=== PATIENT | female | born 1990 | race Caucasian/White ===

== ENCOUNTER → 2023-04-04 09:14 | Outpatient (REF) | payer OTHER, SELFPAY | LOC: REG 09:14 | PROVIDERS: ATTENDING PHYSICIAN Family Medicine | DX: M79.2 Neuralgia and neuritis, unspecified (principal); M54.6 Pain in thoracic spine | CPT/HCPCS: 72072 ==

== ENCOUNTER → 2023-07-26 15:51 | Outpatient (REF) | payer OTHER, SELFPAY | LOC: RAD 15:51 | PROVIDERS: ATTENDING PHYSICIAN Nurse Practitioner Adult Health | DX: Z33.1 Pregnant state, incidental (principal); R10.2 Pelvic and perineal pain | CPT/HCPCS: 76801; 76817 ==

== ENCOUNTER 2023-09-10 12:14 | Emergency (ER) | payer OTHER, SELFPAY ==
[2023-09-10 12:16] VITALS: BP 114/70; BMI 20.8
[2023-09-10 14:00] VITALS: BMI 21.7
[2023-09-10 14:01] VITALS: BP 103/70
[2023-09-10 14:23] LABS: % Basophils 0.4 % (0-2); % Eosinophils 1.7 % (0-6); % Immature Granulocytes 0.3 % (0-0.5); % Lymphocytes 16.1 % (20.5-51.1); % Monocytes 6.2 % (1.7-9.3); % Neutrophils 75.3 % (42.2-75.2); Absolute Eosinophils 0.2 10^3/uL (0-0.7); Absolute Lymphocytes 1.5 10^3/uL (1.2-3.4); Absolute Monocytes 0.6 10^3/uL (0.1-0.6); Hematocrit 34.9 % (37.0-47.0); Hemoglobin 12.5 g/dL (12.0-16.0); Mean Corp Hgb Conc. 35.8 g/dL (33.0-37.0); Mean Corpuscular Hgb 31.9 pg (27.0-31.0); Mean Platelet Volume 10.7 fL (7.4-10.4); Nucleated Red Blood Cells % 0 %; Platelet Count 181 10^3/uL (130-400); Red Blood Cell Count 3.92 10^6/uL (4.20-5.40); Red Cell Dist. Width 12.8 % (11.5-14.5); White Blood Cell Count 9.3 10^3/uL (4.8-10.8)
[2023-09-10 14:36] LABS: ALT (SGPT) 13 U/L (0-35); AST (SGOT) 20 U/L (14-36); Albumin 3.7 g/dl (3.5-5.0); Alkaline Phosphatase 44 U/L (38-126); Blood Urea Nitrogen 12 mg/dl (7-17); Calcium 9.1 mg/dl (8.4-10.2); Carbon Dioxide 23 mmol/L (22-30); Chloride 104 mmol/L (98-107); Estimated Creatinine Clearance 114 ml/min; Glucose 81 mg/dl (70-99); Potassium 4.1 mmol/L (3.5-5.1); Sodium 133 mmol/L (135-145); Total Bilirubin 0.3 mg/dl (0.2-1.3); Total Protein 5.9 g/dl (6.3-8.2); eGFR > 60.00
--- NOTE | 2023-09-10 15:47 | ED.GENMED ---
History of Present Illness
General
Chief Complaint: Abdominal Pain
Source: patient
Time Seen by Provider: 09/10/23 14:05
History of Present Illness
History of Present Illness:
32-year-old female with no significant past medical history, , estimated to be about 12 weeks presenting to the emergency department after she noticed some light vaginal spotting yesterday evening which continued into today. Patient
states she is very concerned about this as she has gone through infertility treatments and after 5 years is finally . She is following with her [employer] through [place]. She does note very light lower abdominal cramping but
otherwise no other symptoms at this time including fevers, chills, rigors, urinary frequency/urgency/dysuria or hematuria. She has no other concerns at this time.
Past History
Past History
ED Past Medical History: None
ED Past Surgical History: None
Social History
Tobacco: Non-smoker
Alcohol: None
Drug: None
Personal:
Living: with family
Employment: Employed
Review of Systems
Review of Systems
All Other Systems: ROS reviewed and negative except as documented in HPI and ROS
Phy Exam
Physical Exam
Physical Exam:
GENERAL: Alert , in no apparent distress
EYE: clear conjunctiva b/l
HEAD: NCAT
ENT: o/p clr, mmm.
ABDOMEN: Soft, without focal tenderness, no r/g, no cvat
NEUROLOGICAL: Alert and oriented
SKIN: Warm and dry, skin intact.
MUSCULOSKELETAL: No edema, well perfused.
PSYCH: Normal and appropriate interaction.
Scores
Heart Failure Risk
Heart Failure Risk Score: Not Applicable
Heart Score for Chest Pain Patients
STEMI patient?: Not applicable
Withdrawal Assessment of Alcohol
Withdrawal Assessment Completed?: Not applicable
Course
Orders/Labs/Results
Orders:
Orders
09/10/23 14:05
US W Transvaginal Urgent
Reason For Exam: spotting x 2 days, worsening pain
09/10/23 14:17
Type+Screen Urgent
BBK Wristband Number:
Beta HCG Quantitative Urgent
Is this a screen?: No
Complete Blood Count/With Diff Urgent
Comprehensive Metabolic Panel Urgent
Abnormal Lab Results
09/10/23
14:17
RBC 3.92 L 10^6/uL
(4.20-5.40)
Hct 34.9 L %
(37.0-47.0)
MCH 31.9 H pg
(27.0-31.0)
MPV 10.7 H fL
(7.4-10.4)
Absolute Neuts (auto) 7.0 H 10^3/uL
(1.4-6.5)
Neutrophils % 75.3 H %
(42.2-75.2)
Lymphocytes % 16.1 L %
(20.5-51.1)
Sodium 133 L mmol/L
(135-145)
Creatinine 0.4 L mg/dL
(0.6-1.0)
Total Protein 5.9 L g/dl
(6.3-8.2)
09/10/23 14:17
09/10/23 14:17
Vital Signs
Initial and Last Documented VS:
Initial Vital Signs
Temp Pulse Resp BP Pulse Ox
98 F 99 16 114/70 98
09/10/23 12:16 09/10/23 12:16 09/10/23 12:16 09/10/23 12:16 09/10/23 12:16
Last Documented Vital Signs
Temp Pulse Resp BP Pulse Ox
98.8 F 74 16 93/56 100
09/10/23 14:01 09/10/23 15:59 09/10/23 15:59 09/10/23 15:59 09/10/23 15:59
MDM/Problems Addressed
Differential Diagnosis Includes:
Threatened miscarriage, incomplete , failure
MDM/Problems Addressed:
32-year-old female presenting emergency department for light vaginal spotting that started last night, continued this morning. Patient estimated to be about 12 weeks . Given her history of infertility issues combined with her current
bleeding will obtain an ultrasound to further evaluate. Disposition pending with likely close outpatient follow-up with her [employer]
*Radiology
Radiology exam reviewed: radiology read reviewed
*Pulse Oximetry
Patient hypoxic: no
*Critical Care Note
Total Time (30-74mins, 75-104mins- exclusive of procedures): Not Applicable
Patient Management
Escalation/DeEscalation of care consider admission/obs:
Patient's ultrasound shows a single live IUP with cardiac activity at 12 weeks and 0 days by crown-rump length. There are no complications seen on ultrasound. Advised on pelvic rest as well as close follow-up her [employer] coming days. Patient aware
of return precautions to the ER.
ED Attending Note
-
Portions of this chart may have been created with voice recognition software.� Occasional wrong word or��sound alike� substitutions may have occurred due to the inherent limitations of voice recognition software.
Discharge Plan
Departure
Patient Disposition: Home (Routine Discharge)
Date of Disposition: 09/10/23
Time of Disposition: 15:47
Patient with high blood pressure during this ER visit?: No
Discharge Problem:
Threatened miscarriage
Instructions: Threatened Miscarriage (DC)
Prescriptions:
No Action
acetaminophen [Tylenol Extra Strength] 500 mg Capsule
1,000 mg PO Q6H PRN (Reason: pain )
Referrals:
Maria Luisa Gomez MD [Family Provider] -
Interventions
Interventions:
*Risk Screen - Suicide Last Done: 09/10/23 12:16
*General Assessment Last Done: 09/10/23 14:00
*Neglect/Abuse Screening Last Done: 09/10/23 12:16
*ED COVID-19 Vaccine History Last Done: 09/10/23 14:00
*Nursing Disposition Last Done: 09/10/23 16:00
DE-Gtgbkg-Awopevtzhv Assessment Last Done: 09/10/23 14:10
Discharge Date and Time
Discharge Date/Time: 09/10/23 16:01
Print Language: KENYAN
[2023-09-10 15:59] VITALS: BP 93/56
== END 2023-09-10 16:01 | disposition home or self-care (01) ==
LOC: EMR 12:14
PROVIDERS: Physician Assistant Medical; EMERGENCY PHYSICIAN Student in an Organized Health Care Education/Training Program; FAMILY PHYSICIAN Family Medicine
DX: O20.0 Threatened abortion (principal); Z3A.12 12 weeks gestation of pregnancy
CPT/HCPCS: 99284; 76801; 76817; 80053; 84702; 85025; 86850; 86900; 86901

== ENCOUNTER → 2024-08-23 13:26 | Outpatient (REF) | payer OTHER, SELFPAY | LOC: RAD 13:26 | PROVIDERS: ATTENDING PHYSICIAN Obstetrics & Gynecology; FAMILY PHYSICIAN Family Medicine | DX: D25.9 Leiomyoma of uterus, unspecified (principal) | CPT/HCPCS: 76830; 76856 ==